=== PATIENT | male | born 1960 | race Caucasian/White ===

== ENCOUNTER 2020-05-14 00:10 | Outpatient (CLI) | payer MEDICARE, SELFPAY ==
[2020-05-14 19:45] LABS: SARS-CoV-2 RNA PCR Negative
== END 2020-05-14 00:11 | disposition home or self-care (01) ==
LOC: ANHCOVIDDT 00:10
PROVIDERS: PCP Family Medicine; Visit Provider Internal Medicine Gastroenterology
DX: Z01.818 Encounter for other preprocedural examination (principal); Z11.59 Encounter for screening for other viral diseases
CPT/HCPCS: 87635; C9803; U0003

== ENCOUNTER 2020-05-16 03:16 | Day surgery (SDC) | payer MEDICARE, SELFPAY ==
[2020-05-09 11:48] VITALS: BMI 21.5
--- NOTE | 2020-05-16 09:22 | WPDANESEPPF ---
Anes - Initial Pre Proc Eval Procedure: Operation Date: 05/16/20 12:00 Proposed Procedures p Colonoscopy - Oniel Arias DO Date/Time: 05/16/20 09:22 Surgeon: Oniel Arias DO Pre Op Diagnosis: blood in stool Patient Data Age: 59 Gender: M Height: 1.8 m Weight: 70 kg Allergies Allergy/AdvReac Type Severity Reaction Status Date / Time No Known Allergies Allergy Verified 05/16/20 10:55 Home Medications Medication Instructions Recorded Confirmed Type alprazolam 0.5 mg PO TID PRN 05/09/20 05/09/20 History ergocalciferol (vitamin D2) 1,250 mcg PO DAILY 05/09/20 05/09/20 History lisinopril 20 mg PO DAILY 05/09/20 05/09/20 History methocarbamol 500 mg PO DAILY 05/09/20 05/09/20 History omeprazole 20 mg PO DAILY 05/09/20 05/09/20 History paroxetine HCl 30 mg PO DAILY 05/09/20 05/09/20 History pravastatin 20 mg PO DAILY 05/09/20 05/09/20 History Patient hx anesthesia problems: none Family hx anesthesia problems: none PMFSH Past Medical History Medical History (Updated 05/16/20 @ 09:23 by Geoffrey Medina MD) Anxiety Arthritis Back pain Emphysema lung Gastroesophageal reflux disease HTN (hypertension) Hypercholesterolemia IBS (irritable bowel syndrome) Anes - Eval Final PreProcedure Day of Procedure 05/16/20 09:22 Patient weight: normal Heart: regular rate and rhythm Lungs: clear to auscultation and normal air movement Airway: Mallampati scale class II Neurological: alert and oriented Last oral intake: >/= 8 hours ASA classification: III Emergent: no Anesthetic plan: proceed Anesthesia type and monitoring: general GIVS Informed Consent: The patient's anesthetic plan and its attendant risks and benefits were discussed with the patient/family/POA. Questions were solicited and answers provided to the satisfaction of the patient/family/POA.
[2020-05-16 11:06] VITALS: BP 114/86; PULSE 85; RESP 20; TEMP 36.7; O2SAT 98
[2020-05-16] MEDS: LACTATED RINGERS 1,000 ML 150 ML IV CONT (11:17)
--- NOTE | 2020-05-16 12:09 | PM.IMHP ---
H&P: HPI History of Present Illness Chief complaint: blood in stool Narrative: Reason for visit colonoscopy. This very pleasant gentleman seen in consultation at request of the primary physician. Impression: A very pleasant gentleman presents with chronic diarrhea, abdominal pain and weight loss. Evaluate for any inflammatory or neoplastic disease. GERD with breakthrough symptoms. IBS. HTN. COPD. Chronic back pain. HLD. Anxiety. Recommendation: Colonoscopy. EGD showed rule. History: Very pleasant gentleman is being referred for chronic diarrhea. He awakens externally with diarrhea. Has significant cramping in goes a few times per day. He reports blood on the tissue paper occasional blood in the stool. He is down approximately 12 lb or so. He does have a history of nausea, anorexia and frequent heartburn. this is despite taking Nexium regularly. He had a colonoscopy back in 2010 and 2011. He has never had an EGD. He is here for colonoscopy and a EGD has been showed will. Physical examination: General: very pleasant patient in no acute distress. HEENT: Head was normocephalic sclerae is clear mouth without masses neck was supple. Heart: Rate rhythm regular without S3 or S4. Lungs: CTA. Abdomen: Soft with no guarding or rigidity. Bowel sounds were active. Neurologic: Cranial nerves 2 through 12 intact. No focal defects. No clonus. Musculoskeletal system: Revealed no joint tenderness or swelling no muscle atrophy. Extremities: Reveal no significant edema. Skin: Warm and dry with normal turgor. Mental status: intact. Patient is alert and oriented. Review of Systems Review of Systems: All systems reviewed & are unremarkable except as noted in HPI and below PMFSH Past Medical History Medical History Anxiety Arthritis Back pain COPD (chronic obstructive pulmonary disease) GERD (gastroesophageal reflux disease) HLD (hyperlipidemia) HTN (hypertension) IBS (irritable bowel syndrome) Surgical History Surgical History H/O colonoscopy H/O elbow surgery H/O shoulder surgery History of carpal tunnel release R. x 2 Previous back surgery x 2 Meds Home Medications and Allergies Home Medications Medication Instructions Recorded Confirmed Type alprazolam 0.5 mg PO TID PRN 05/09/20 05/16/20 History ergocalciferol (vitamin D2) 1,250 mcg PO DAILY 05/09/20 05/09/20 History lisinopril 20 mg PO DAILY 05/09/20 05/16/20 History methocarbamol 500 mg PO DAILY 05/09/20 05/16/20 History omeprazole 20 mg PO DAILY 05/09/20 05/16/20 History paroxetine HCl 30 mg PO DAILY 05/09/20 05/16/20 History pravastatin 20 mg PO DAILY 05/09/20 05/16/20 History Allergies Allergy/AdvReac Type Severity Reaction Status Date / Time No Known Allergies Allergy Verified 05/16/20 10:55 Vital Signs Vital Signs - 24 hr 05/16/20 11:06 Temperature 36.7 C Pulse Rate 85 Respiratory Rate 20 Blood Pressure 114/86 Pulse Oximetry 98
[2020-05-16 13:03] VITALS: BP 119/81; PULSE 71; RESP 18; O2SAT 98
[2020-05-16 13:13] VITALS: BP 89/62; PULSE 72; RESP 18; O2SAT 98
[2020-05-16 13:23] VITALS: BP 100/72; PULSE 72; RESP 18; O2SAT 98
== END 2020-05-16 13:39 | disposition home or self-care (01) ==
PROVIDERS: PCP Family Medicine; Visit Provider Internal Medicine Gastroenterology
PROC: 0DJD8ZZ Inspection of Lower Intestinal Tract, Via Natural or Artificial Opening Endoscopic (ICD-10-PCS; CPT 45378; principal; 2020-05-16 12:00)
DX: R19.7 Diarrhea, unspecified (principal); K63.5 Polyp of colon; K62.1 Rectal polyp; K64.8 Other hemorrhoids; I10 Essential (primary) hypertension; E78.00 Pure hypercholesterolemia, unspecified; J44.9 Chronic obstructive pulmonary disease, unspecified; K21.9 Gastro-esophageal reflux disease without esophagitis; K58.9 Irritable bowel syndrome, unspecified; F41.9 Anxiety disorder, unspecified
CPT/HCPCS: 45380; 88305; J2704; J7120

== ENCOUNTER 2020-05-21 01:19 | Outpatient (CLI) | payer MEDICARE, SELFPAY ==
[2020-05-21 19:16] LABS: SARS-CoV-2 RNA PCR Negative
== END 2020-05-21 01:20 | disposition home or self-care (01) ==
LOC: ANHCOVIDDT 01:20
PROVIDERS: PCP Family Medicine; Visit Provider Internal Medicine Gastroenterology
DX: Z01.812 Encounter for preprocedural laboratory examination (principal); Z11.59 Encounter for screening for other viral diseases
CPT/HCPCS: 87635; C9803; U0003

== ENCOUNTER 2020-05-23 00:40 | Day surgery (SDC) | payer MEDICARE, SELFPAY ==
[2020-05-23 09:09] VITALS: BP 131/76; PULSE 53; RESP 16; TEMP 37.1; O2SAT 100
[2020-05-23] MEDS: LACTATED RINGERS 1,000 ML 150 ML IV CONT (09:18)
--- NOTE | 2020-05-23 09:35 | WPDHPUPDATE1 ---
History and Physical Update Update Date/Time: 05/23/20 09:35 History and Physical has been reviewed, including an updated exam of the patient. There are NO changes in the patient's condition. Risks, benefits, and alternatives have been discussed and questions answered. Patient agrees to proceed with procedure.
--- NOTE | 2020-05-23 09:50 | WPDANESEPPF ---
Anes - Initial Pre Proc Eval Procedure: Operation Date: 05/23/20 09:30 Proposed Procedures p Esophagogastroduodenoscopy - Oniel Arias DO Date/Time: 05/23/20 09:50 Surgeon: Oniel Arias DO Pre Op Diagnosis: GERD Patient Data Age: 59 Gender: M Height: Weight: Last Vital Signs Temp 98.7 F 05/23/20 09:09 Pulse 53 L 05/23/20 09:09 Resp 16 05/23/20 09:09 BP 131/76 05/23/20 09:09 Pulse Ox 100 05/23/20 09:09 Allergies Allergy/AdvReac Type Severity Reaction Status Date / Time No Known Allergies Allergy Verified 05/23/20 09:07 Home Medications Medication Instructions Recorded Confirmed Type alprazolam 0.5 mg PO TID PRN 05/09/20 05/16/20 History ergocalciferol (vitamin D2) 1,250 mcg PO DAILY 05/09/20 05/09/20 History lisinopril 20 mg PO DAILY 05/09/20 05/16/20 History methocarbamol 500 mg PO DAILY 05/09/20 05/16/20 History omeprazole 20 mg PO DAILY 05/09/20 05/16/20 History paroxetine HCl 30 mg PO DAILY 05/09/20 05/16/20 History pravastatin 20 mg PO DAILY 05/09/20 05/16/20 History Patient hx anesthesia problems: none Family hx anesthesia problems: none Anes - Eval Final PreProcedure Day of Procedure 05/23/20 09:50 Patient weight: normal Heart: regular rate and rhythm Lungs: clear to auscultation Airway: Mallampati scale class II Neurological: alert and oriented Last oral intake: >/= 8 hours ASA classification: III Emergent: no Anesthetic plan: proceed Anesthesia type and monitoring: general GIVS Informed Consent: The patient's anesthetic plan and its attendant risks and benefits were discussed with the patient/family/POA. Questions were solicited and answers provided to the satisfaction of the patient/family/POA.
[2020-05-23 10:28] VITALS: BP 112/73; PULSE 52; RESP 16; O2SAT 100
[2020-05-23 10:38] VITALS: BP 133/79; PULSE 52; RESP 16; O2SAT 100
[2020-05-23 10:48] VITALS: BP 124/78; PULSE 46; RESP 16; O2SAT 100
== END 2020-05-23 10:55 | disposition home or self-care (01) ==
PROVIDERS: PCP Family Medicine; Visit Provider Internal Medicine Gastroenterology
PROC: 0DJ08ZZ Inspection of Upper Intestinal Tract, Via Natural or Artificial Opening Endoscopic (ICD-10-PCS; CPT 43235; principal; 2020-05-23 09:30)
DX: K21.9 Gastro-esophageal reflux disease without esophagitis (principal)
CPT/HCPCS: 43239; 87081; J2704; J7120